=== PATIENT | male | born 1970 | race Caucasian/White ===

== ENCOUNTER → 2017-10-09 18:10 | Outpatient (CLI) | payer OTHER, SELFPAY | PROVIDERS: Visit Provider Dermatology Pediatric Dermatology | DX: L02.222 Furuncle of back [any part, except buttock and flank] (principal); L02.223 Furuncle of chest wall; L73.2 Hidradenitis suppurativa | CPT/HCPCS: 87070; 87205 ==

== ENCOUNTER → 2017-11-08 16:56 | Outpatient (CLI) | payer OTHER, SELFPAY ==
[2017-11-08 18:03] LABS: Absolute Lymphocyte Count 2.97 X10^3/ul (0.83-4.51); Basophil# 0.03 X10^3/uL; Basophil% 0.3 % (0-1); Eosinophil# 0.11 X10^3/uL; Eosinophils% 1.1 % (0-5); Hematocrit 46.3 % (40-54); Hemoglobin 15.7 g/dl (13.0-16.5); Lymphocyte # 2.97 X10^3/ul (4.0); Lymphocyte % 30.1 % (19-41); Mean Corp Hgb Conc 33.9 g/gl (32-36); Mean Corpuscular Hgb 32.4 pg (27.0-32.0); Mean Corpuscular Volume 95.7 fL (80-94); Mean Platelet Vol. 10.9 fl (6.2-12.0); Monocyte# 0.69 X10^3/uL; Neutrophil # 6.04 X10^3/uL (2.7-7.7); Neutrophil % 61.2 % (47-70); POSITIVE COUNT NO; POSITIVE DIFFERENTIAL NO; POSITIVE MORPHOLOGY NO; Platelet Count 222 K/mm3 (150-450); RBC Distribution Width SD 44.8 fl (35.1-43.9); Red Blood Count 4.84 M/mm3 (4.6-6.2); White Blood Count 9.9 K/mm3 (4.4-11.0)
[2017-11-08 18:38] LABS: ALB/GLOB Ratio 1.1 RATIO (0.9-2.4); AST(SGOT) 19 U/L (15-37); Alanine Aminotransfer ALT/SGPT 25 U/L (16-61); Albumin, Serum 3.9 g/dL (3.2-5.0); Alkaline Phosphatase 81 U/L (45-117); Anion Gap 7 (5-15); BUN 14 mg/dL (7-18); BUN/Creat Ratio 13.3 RATIO (10-20); Calcium,Total 9.1 mg/dL (8.5-10.1); Chloride 109 mmol/L (98-107); Creatinine, Serum 1.05 mg/dL (0.70-1.30); EST Glomerular Filtration Rate 80 mL/min (>60); Est Glom Filt Rate - Afr Amer 97 mL/min (>60); Globulin 3.7 g/dL (2.2-4.2); Glucose 82 mg/dL (74-106); Potassium 3.5 mmol/L (3.5-5.1); Protein, Total 7.6 g/dL (6.4-8.2); Sodium Level 144 mmol/L (136-145)
[2017-11-13 14:07] LABS: QNTFERON TB Ag Minus Nil Value 0.05 IU/mL (.); QNTFERON TB Ag Value 0.07 IU/mL (.); QNTFERON TB Mitogen Value > 10.00 IU/mL (.); QNTFERON TB Nil Value 0.02 IU/mL (.)
[2017-11-14 08:58] LABS: QNTIFERON TB Gold Negative (Negative)
== END ==
PROVIDERS: Family Provider Internal Medicine; Visit Provider Nurse Practitioner Family
DX: L73.2 Hidradenitis suppurativa (principal); L02.92 Furuncle, unspecified
CPT/HCPCS: 36415; 80053; 85025; 86480

== ENCOUNTER → 2018-01-31 14:41 | Outpatient (CLI) | payer OTHER, SELFPAY ==
[2018-02-02 05:08] LABS: HEPATITIS B SURFACE AG Negative (Negative)
[2018-02-02 08:21] LABS: Hep B Surface Antibodies Non Reactive (.); Hep C Antibodies <0.1 s/co ratio (0.0-0.9); Hepatitis B Core Ab Total Negative (Negative)
== END ==
PROVIDERS: Family Provider Internal Medicine; PCP Internal Medicine; Referring Provider Dermatology; Visit Provider Dermatology
DX: L73.2 Hidradenitis suppurativa (principal); Z79.899 Other long term (current) drug therapy
CPT/HCPCS: 36415; 86704; 86706; 86803; 87340

== ENCOUNTER → 2018-05-30 13:03 | Outpatient (CLI) | payer OTHER, SELFPAY | PROVIDERS: Family Provider Internal Medicine; PCP Internal Medicine; Referring Provider Nurse Practitioner Family; Visit Provider Nurse Practitioner Family | DX: L08.9 Local infection of the skin and subcutaneous tissue, unspecified (principal); L73.2 Hidradenitis suppurativa | CPT/HCPCS: 87070; 87077; 87186; 87205 ==